=== PATIENT | female | born 1980 | race Caucasian/White ===

== ENCOUNTER 2023-02-24 12:12 | Outpatient (CLI) | payer OTHER | END 2023-02-24 12:13 | disposition home or self-care (01) | LOC: CSHCT 12:12 | PROVIDERS: ATTEND Internal Medicine Gastroenterology | DX: K50.90 Crohn's disease, unspecified, without complications (principal); K56.699 Other intestinal obstruction unspecified as to partial versus complete obstruction | CPT/HCPCS: 74177 ==